=== PATIENT | male | born 1985 | race Asian ===

== ENCOUNTER 2019-01-10 05:23 | Emergency (ER) | payer OTHER ==
[~2019-01-10] VITALS: Ht 175.3 cm; Wt 93.2 kg
[2019-01-10] MEDS ORDERED: ALLO100T PO (05:33)
[2019-01-10] MEDS ORDERED: COLC0.6T73 PO (05:41)
[2019-01-10] MEDS ORDERED: FAMOTIDINE 20 MG TABLET PO ONE (06:30)
[2019-01-10] MEDS ORDERED: INDOMETHACIN 25 MG CAPSULE PO ONE (06:30)
[2019-01-10] MEDS ORDERED: OxyCODONE HCL/ACETAMINOPHEN 5-325 MG TABLET PO ONE (06:45)
[2019-01-10 07:42] VITALS: BP 124/86
== END 2019-01-10 08:03 | disposition home or self-care (01) ==
LOC: EMS 05:23
DX: M10.9 Gout, unspecified (principal); Z79.899 Other long term (current) drug therapy
CPT/HCPCS: 84550

== ENCOUNTER 2023-04-19 12:49 | Emergency (ER) | payer OTHER ==
[~2023-04-19] VITALS: Ht 175.3 cm; Wt 106.8 kg
[~2023-04-19 12:49] MED LIST: ALLO100T PO; COLC0.6T73 PO
[2023-04-19 14:04] VITALS: BP 127/90; PULSE 110; RESP 16; TEMP 98.5
[2023-04-19] MEDS ORDERED: METH-812 PO (15:43)
[2023-04-19] MEDS ORDERED: IBUP-1493 PO (15:43)
[2023-04-19] MEDS ORDERED: ERGO500054 PO (15:52)
[2023-04-19] MEDS ORDERED: ALLO300T2 PO (15:52)
[2023-04-19] MEDS ORDERED: METF-81 PO (15:52)
[2023-04-19] MEDS ORDERED: LOSA-382 PO (15:52)
[2023-04-19] MEDS ORDERED: SERT-440 PO (15:52)
[2023-04-19] MEDS: KETOROLAC TROMETHAMINE 30 MG/ML VIAL IM ONE (17:28)
== END 2023-04-19 17:49 | disposition home or self-care (01) ==
LOC: EMS 13:11
DX: M10.9 Gout, unspecified (principal); M54.50 Low back pain, unspecified; M25.562 Pain in left knee
CPT/HCPCS: 99284; 72100; 73562; 96372; J1885

== ENCOUNTER 2024-07-16 14:10 | Emergency (ER) | payer OTHER ==
[~2024-07-16] VITALS: Ht 185.4 cm; Wt 97.7 kg
[~2024-07-16 14:10] MED LIST changes: -ALLO100T PO; +ALLO300T2 PO; +COLC-3 PO; -COLC0.6T73 PO; +ERGO500054 PO; +IBUP-1493 PO; +LOSA-382 PO; +METF-81 PO; +METH-812 PO; +SERT-440 PO
[2024-07-16 14:13] VITALS: BP 116/81; PULSE 82; RESP 18; TEMP 98; O2SAT 99
== END 2024-07-16 19:30 | disposition left against medical advice (07) ==
LOC: EMS 14:10
DX: M25.571 Pain in right ankle and joints of right foot (principal); Z53.21 Procedure and treatment not carried out due to patient leaving prior to being seen by health care provider
CPT/HCPCS: 73610-TC